=== PATIENT | female | born 1990 | race African-American/Black ===

== ENCOUNTER 2016-07-07 19:56 | Emergency (ER) | payer MEDICAID, MEDICARE ==
[~2016-07-07] VITALS: Ht 157.5 cm; Wt 50.0 kg
[2016-07-07] MEDS ORDERED: SODIUM CHLORIDE 0.9% 1,000 ML IV ONE (21:11)
[2016-07-07] MEDS ORDERED: METOCLOPRAMIDE HCL 10MG/2ML VIAL IV STA (21:11)
[2016-07-07] MEDS ORDERED: FAMOTIDINE 20MG/2ML VIAL IV STA (21:11)
[2016-07-07 21:38] LABS: BASOPHILS % 0.4 % (0.0-2.0); EOSINOPHILS % 0.2 % (0.0-5.0); HEMATOCRIT. 37.3 % (36.0-48.0); HEMOGLOBIN. 12.7 g/dL (12.0-16.0); LYMPHOCYTES % 9.1 % (20.0-50.0); MEAN CORPUSCULAR HEMOGLOBIN 30.8 pg (28.0-32.0); MEAN CORPUSCULAR VOLUME 90.5 fL (81.0-99.0); MEAN PLATELET VOLUME 6.9 fl (7.4-10.4); NEUTROPHILS % 86.3 % (40.0-76.0); PLATELET 278 x1000/uL (130-400); RED BLOOD CELL COUNT 4.13 mill/uL (4.2-5.4); RED CELL DISTRIBUTION WIDTH 12.2 % (11.6-14.6); WHITE BLOOD COUNT 10.4 x1000/uL (4.5-11.0)
[2016-07-07 21:46] LABS: CALCIUM 9.5 mg/dL (8.5-10.1); CHLORIDE 105 mEq/L (98-107); INDEX HEMOLYSI 1 (1-3); INDEX ICTERIC 1 (1-4); INDEX LIPEMIC 1 (1-3); INR 1.2; PROTHROMBIN TIME 12.3 sec
[2016-07-07 21:49] LABS: HCG SCREEN NEGATIVE
[2016-07-07 21:52] LABS: ALANINE AMINOTRANSFERASE 25 IU/L (13-61); ALBUMIN 4.1 g/dL (3.4-5.0); ANION GAP 16; CARBON DIOXIDE 27 mEq/L (21-32); ETHANOL BLOOD < 10 mg/dL; LIPASE 59 IU/L (73-393); UREA NITROGEN BLOOD 20 mg/dL (7-21); eGFR > 60 mL/min (>60)
[2016-07-07 22:38] LABS: CLARITY URINE CLEAR (CLEAR); COLOR URINE YELLOW (YELLOW); GLUCOSE URINE NEGATIVE (NEGATIVE); KETONES URINE TRACE (NEGATIVE); LEUKOCYTE ESTERASE URINE NEGATIVE (NEGATIVE); NITRITE URINE NEGATIVE (NEGATIVE); OCCULT BLOOD URINE NEGATIVE (NEGATIVE); PROTEIN URINE 1+ (NEGATIVE); SPECIFIC GRAVITY URINE 1.035 (1.005-1.030)
[2016-07-07 22:53] LABS: BACTERIA URINE TRACE; RBC URINE 0-2 /hpf (0-2); SQUAMOUS EPITHELIAL CELL URINE FEW /lpf (RARE/1+); WBC URINE 0-2 /hpf (0-2)
[2016-07-07 23:11] LABS: *AMPHETAMINES SCREEN URINE NEGATIVE (NEGATIVE); *BARBITURATES SCREEN URINE NEGATIVE (NEGATIVE); *BENZODIAZEPINES SCREEN URINE NEGATIVE (NEGATIVE); *COCAINE SCREEN URINE NEGATIVE (NEGATIVE); ECSTASY MDMA SCREEN URINE NEGATIVE (NEGATIVE); METHADONE URINE SCREEN NEGATIVE (NEGATIVE); OPIATES URINE SCREEN NEGATIVE (NEGATIVE); PHENCYCLIDINE URINE SCREEN NEGATIVE (NEGATIVE)
[2016-07-07 23:17] LABS: CANNABINOID URINE SCREEN PRESUMTIVE POSITIVE (NEGATIVE)
[2016-07-07 23:30] VITALS: BP 125/69
== END 2016-07-07 23:33 | disposition home or self-care (01) ==
LOC: ER 19:56
DX: R10.84 Generalized abdominal pain (principal); F12.929 Cannabis use, unspecified with intoxication, unspecified; R11.2 Nausea with vomiting, unspecified
CPT/HCPCS: 36415; 80053; 80305; 81001; 83690; 84703; 85025; 85610; 85730; 93005; 96361; 96374; 96375; 99285; G0482; J2765; J3490; J7030; Z7610

== ENCOUNTER 2017-06-15 20:54 | Emergency (ER) | payer MEDICAID, MEDICARE ==
[~2017-06-15] VITALS: Ht 157.5 cm; Wt 55.0 kg
[2017-06-15] MEDS ORDERED: IBUPROFEN 600MG TABLET PO ONE (22:15)
[2017-06-16 01:05] VITALS: BP 128/61
== END 2017-06-16 01:10 | disposition home or self-care (01) ==
LOC: ER 21:03
DX: J02.8 Acute pharyngitis due to other specified organisms (principal); B97.89 Other viral agents as the cause of diseases classified elsewhere
CPT/HCPCS: 87070; 87430; 99284